=== PATIENT | male | born 1975 | race Caucasian/White ===

== ENCOUNTER 2024-06-26 13:46 | Inpatient (IN) | payer SELFPAY ==
[~2024-06-26] VITALS: Ht 165.1 cm; Wt 78.5 kg
[2024-06-26 15:49] LABS: BASOPHILS % 2.7 % (0.0-2.0); EOSINOPHILS % 3.1 % (0.0-5.0); HEMATOCRIT. 34.4 % (42.0-52.0); HEMOGLOBIN. 11.2 g/dL (14.0-18.0); LYMPHOCYTES % 40.9 % (20.0-50.0); MEAN CORPUSCULAR HGB CONC 32.4 g/dL (31.0-37.0); MEAN CORPUSCULAR VOLUME 80.2 fL (80.0-94.0); MONOCYTES % 11.8 % (2.0-8.0); NEUTROPHILS % 41.5 % (40.0-76.0); PLATELET 314 x1000/uL (130-400); RED CELL DISTRIBUTION WIDTH 18.8 % (11.6-14.6); WHITE BLOOD COUNT 4.9 x1000/uL (4.5-11.0)
[2024-06-26 15:56] LABS: CARBON DIOXIDE 26 mEq/L (21-32); CHLORIDE 104 mEq/L (98-107); POTASSIUM 3.8 mEq/L (3.5-5.1); SODIUM 138 mEq/L (136-145)
[2024-06-26 15:58] LABS: PARTIAL THROMBOPLASTIN TIME 27.4 sec (23.4-31.0); PROTHROMBIN TIME 10.4 sec (9.6-11.0)
[2024-06-26 16:02] LABS: CREATININE 0.7 mg/dL (0.6-1.3); GLUCOSE 96 mg/dL (70-105); UREA NITROGEN BLOOD 7 mg/dL (9-23)
[2024-06-26 16:04] LABS: ALANINE AMINOTRANSFERASE 95 IU/L (10-49); ALBUMIN 4.7 g/dL (3.2-4.8); ASPARTATE AMINOTRANSFERASE 121 IU/L (<34); BILIRUBIN TOTAL 0.4 mg/dL (0.1-1.0); PROTEIN TOTAL 7.9 g/dL (6.0-8.3)
[2024-06-26 16:11] LABS: ETHANOL BLOOD 306 mg/dL (<10)
[2024-06-26] MEDS: PANTOPRAZOLE SODIUM 40 MG/VIAL IV STA (17:08)
[2024-06-26] MEDS: SODIUM CHLORIDE 0.9% 1,000 ML IV ONE (17:08)
[2024-06-26] MEDS ORDERED: IOHEXOL-350 100 ML BOTTLE ONE (19:01)
[2024-06-26 20:00] VITALS: BP 122/79; PULSE 68; RESP 17; TEMP 36.8; O2SAT 99
[2024-06-26 20:21] VITALS: BP 122/79; PULSE 68; RESP 17; TEMP 36.9
[2024-06-26] MEDS ORDERED: HYDROCODONE/ACETAMINOPHEN 5/325MG TABLET PO PRN (23:00)
[2024-06-26] MEDS ORDERED: NALOXONE HCL 0.4MG/ML VIAL IV PRN (23:00)
[2024-06-26] MEDS ORDERED: ONDANSETRON HCL 4MG/2ML INJ IV PRN (23:00)
[2024-06-27] VITALS: BP 121/73; PULSE 67; RESP 16; TEMP 36.4; O2SAT 98
[2024-06-27 04:00] VITALS: BP 123/68; PULSE 68; RESP 16; TEMP 36.4; O2SAT 97
[2024-06-27 06:59] LABS: BASOPHILS % 2.3 % (0.0-2.0); EOSINOPHILS % 4.7 % (0.0-5.0); HEMATOCRIT. 33.6 % (42.0-52.0); LYMPHOCYTES % 24.7 % (20.0-50.0); MEAN CORPUSCULAR HEMOGLOBIN 26.2 pg (28.0-32.0); MEAN CORPUSCULAR HGB CONC 32.8 g/dL (31.0-37.0); MEAN PLATELET VOLUME 7.6 fl (7.4-10.4); MONOCYTES % 10.2 % (2.0-8.0); NEUTROPHILS % 58.1 % (40.0-76.0); PLATELET 267 x1000/uL (130-400); RED BLOOD CELL COUNT 4.21 mill/uL (4.7-6.1); RED CELL DISTRIBUTION WIDTH 19.6 % (11.6-14.6)
[2024-06-27 07:02] LABS: CALCIUM 8.8 mg/dL (8.7-10.4); CARBON DIOXIDE 26 mEq/L (21-32); CHLORIDE 104 mEq/L (98-107); POTASSIUM 3.8 mEq/L (3.5-5.1); SODIUM 137 mEq/L (136-145)
[2024-06-27 07:08] LABS: CREATININE 0.6 mg/dL (0.6-1.3); GLUCOSE 80 mg/dL (70-105); UREA NITROGEN BLOOD 7 mg/dL (9-23)
[2024-06-27 08:00] VITALS: BP 125/80; PULSE 61; RESP 16; TEMP 36.5; O2SAT 100
[2024-06-27] MEDS: PANTOPRAZOLE 40MG DR TABLET PO SCH (08:57)
[2024-06-27] MEDS ORDERED: LORAZEPAM 1MG TABLET PO PRN (10:45)
[2024-06-27 12:00] VITALS: BP 119/79; PULSE 69; RESP 18; TEMP 36.8; O2SAT 99
[2024-06-27] MEDS: CHLORDIAZEPOXIDE 25MG CAPSULE PO SCH (13:49)
[2024-06-27 16:00] VITALS: BP 120/60; PULSE 78; RESP 18; TEMP 35.9; O2SAT 98
[2024-06-27 20:00] VITALS: BP 123/85; PULSE 63; RESP 16; TEMP 36.3; O2SAT 98
[2024-06-28] VITALS: BP 113/76; PULSE 59; RESP 16; TEMP 36.3; O2SAT 99
[2024-06-28 04:00] VITALS: BP 96/70; PULSE 62; RESP 16; TEMP 37.1; O2SAT 100
[2024-06-28 08:00] VITALS: BP 120/75; PULSE 66; RESP 20; TEMP 36.6; O2SAT 100
[2024-06-28 12:00] VITALS: BP 108/73; PULSE 78; RESP 20; TEMP 36.6; O2SAT 100
[2024-06-28 14:22] VITALS: BP 108/73; PULSE 78; TEMP 97.8; O2SAT 100
== END 2024-06-28 15:13 | disposition home or self-care (01) | DRG 253 ==
LOC: ER 13:46 → EDBEDREQTM 17:42 → EDBEDREQ 17:42 → ENRESERV 17:58 → 7EST 18:59
PROVIDERS: ADMIT Internal Medicine; ATTEND Internal Medicine
DX: K92.2 Gastrointestinal hemorrhage, unspecified (principal); K74.60 Unspecified cirrhosis of liver; F15.90 Other stimulant use, unspecified, uncomplicated; D64.9 Anemia, unspecified; Y90.8 Blood alcohol level of 240 mg/100 ml or more; F17.210 Nicotine dependence, cigarettes, uncomplicated; F10.939 Alcohol use, unspecified with withdrawal, unspecified; F10.929 Alcohol use, unspecified with intoxication, unspecified; Z79.899 Other long term (current) drug therapy
CPT/HCPCS: 36415; 74177; 80048; 80053; 80320; 85025; 86850; 86900; 99285; J2470; J7030; Q9967; G0480

== ENCOUNTER 2024-08-21 15:17 | Emergency (ER) | payer MEDICAID ==
[~2024-08-21] VITALS: Ht 167.6 cm; Wt 73.0 kg
[2024-08-21 15:18] VITALS: O2SAT 100
[2024-08-21 15:49] LABS: HEMATOCRIT. 34.9 % (42.0-52.0); HEMOGLOBIN. 11.1 g/dL (14.0-18.0); MEAN PLATELET VOLUME 7.2 fl (7.4-10.4); PLATELET 251 x1000/uL (130-400); RED BLOOD CELL COUNT 4.37 mill/uL (4.7-6.1); RED CELL DISTRIBUTION WIDTH 20.5 % (11.6-14.6)
[2024-08-21 15:56] LABS: CREATININE 0.7 mg/dL (0.6-1.3); UREA NITROGEN BLOOD 9 mg/dL (9-23)
[2024-08-21 16:06] LABS: ETHANOL BLOOD 306 mg/dL (<10)
[2024-08-21 16:44] LABS: EOSINOPHILS % MANUAL 3.0 % (0.0-5.0); LYMPHOCYTES % MANUAL 41.0 % (20.0-50.0); MONOCYTES % MANUAL 14.0 % (2.0-8.0); NEUTROPHILS % MANUAL 42.0 % (45.0-75.0); PLATELET ESTIMATE NORMAL
[2024-08-22 10:14] LABS: CLARITY URINE CLEAR (CLEAR); COLOR URINE YELLOW (YELLOW); GLUCOSE URINE NEGATIVE (NEGATIVE); KETONES URINE NEGATIVE (NEGATIVE); LEUKOCYTE ESTERASE URINE NEGATIVE (NEGATIVE); NITRITE URINE NEGATIVE (NEGATIVE); OCCULT BLOOD URINE NEGATIVE (NEGATIVE); PH URINE 7.0 (4.5-8.0); PROTEIN URINE NEGATIVE (NEGATIVE); SPECIFIC GRAVITY URINE 1.016 (1.005-1.030); UROBILINOGEN URINE 0.2 E.U./dL (0.2-1.0)
[2024-08-22 10:35] LABS: *AMPHETAMINES SCREEN URINE NEGATIVE (NEGATIVE); *BARBITURATES SCREEN URINE NEGATIVE (NEGATIVE); *BENZODIAZEPINES SCREEN URINE NEGATIVE (NEGATIVE); *COCAINE SCREEN URINE NEGATIVE (NEGATIVE); METHADONE URINE SCREEN NEGATIVE (NEGATIVE); OPIATES URINE SCREEN NEGATIVE (NEGATIVE); PHENCYCLIDINE URINE SCREEN NEGATIVE (NEGATIVE)
[2024-08-22 10:36] LABS: CANNABINOID URINE SCREEN NEGATIVE (NEGATIVE); ECSTASY MDMA SCREEN URINE NEGATIVE (NEGATIVE)
[2024-08-22] MEDS: MULTIVITAMINS,THER W-MINERALS TABLET PO SCH (11:40)
[2024-08-22] MEDS: IBUPROFEN 600MG TABLET PO ONE (11:40)
[2024-08-22] MEDS: FOLIC ACID/VITAMIN B COMP W-C TABLET PO SCH (11:40)
[2024-08-22] MEDS: GABAPENTIN 100MG CAPSULE PO SCH (15:02)
[2024-08-23 14:30] VITALS: BP 128/84; PULSE 70; RESP 18; TEMP 36.8; O2SAT 99
== END 2024-08-23 18:20 | disposition short-term general hospital (02) ==
LOC: ER 15:17
DX: F10.129 Alcohol abuse with intoxication, unspecified (principal); R45.851 Suicidal ideations; F32.A Depression, unspecified; F15.90 Other stimulant use, unspecified, uncomplicated; Z79.899 Other long term (current) drug therapy; Y90.8 Blood alcohol level of 240 mg/100 ml or more
CPT/HCPCS: 80048; 80307; 80329; 80320 ×2; 83690; 85025; 36415 ×2; 99285; Z7610 ×2; A4606; G0480